=== PATIENT | male | born 1930 | race Caucasian/White ===

== ENCOUNTER 2016-12-12 06:19 | Day surgery (SDC) | payer OTHER, BC ==
--- NOTE | 2016-11-01 11:33 | HP ---
DATE OF SURGERY: 11/21/16. REASON FOR ADMISSION: Large left inguinal hernia. BRIEF HISTORY: This is an 85-year-old gentleman with several year history of having a large left inguinal hernia. He has had this hernia causing him discomfort now and he wishes to have this repaired. Patient states the hernia now is causing him pain when he sits down or does any type of lifting or bending type activities. The hernia has gotten larger over the past several years as well. He denies having nausea or vomiting, no change in bowel habits. PAST MEDICAL HISTORY: Significant for atrial fibrillation, hypertension, hypercholesterolemia. He has arthritic changes, eye disease, and skin problems. PAST SURGICAL HISTORY: Melanoma, hip replacement. Patient has had a prostate procedure in 2005 (I assume it is TURP but will plan to follow up and make sure it was not a prostatectomy). He had knee surgery. ALLERGIES: None. SOCIAL HISTORY: Patient does not smoke. He drinks socially. MEDICATION: Allopurinol 300mg and Diovan 160mg. PHYSICAL EXAMINATION: Lungs: Clear. Heart: Regular rhythm. Abdomen: Soft. Nontender. Nondistended. He has a large left inguinal hernia which is reducible in the supine position. He has no obvious findings in the right groin, but there is some laxity noted. Testicles within normal limits. IMPRESSION/PLAN: Reducible large left inguinal hernia: This is an 85-year-old gentleman symptomatic from a reducible large left inguinal hernia. I would recommend proceeding with a laparoscopic left inguinal hernia repair with mesh. At the time of laparoscopy the right side will be examined, if a small hernia is noted, it will be repaired in the same setting. If no hernia is seen a piece of mesh will be left in direct normal space for reinforcement. The indications, alternatives, complications of procedure discussed. Questions answered. Will plan to obtain written consent on the day of surgery. Frida RENEE [id number] cc: Jose Johns M.D. 11/06/16 ADDENDUM - Pt notified our office on 09/12/16 that the prostate procedure that he had in the past was a radio seed implant in the prostate done on 08/01/2005. [facility]
[2016-12-10 12:59] VITALS: BMI 23.0
[2016-12-12] MEDS ORDERED: ceFAZolin SODIUM 1 GM VIAL ONE (07:21)
[2016-12-12] MEDS ORDERED: TAMSULOSIN HCL 0.4 MG CAP.ER.24H (FP) ONE ×2 (07:21→12:22)
[2016-12-12] MEDS ORDERED: BUPIVACAINE HCL/PF 0.5% (5MG/ML) 10 ML VIAL ONE (07:44)
[2016-12-12] MEDS ORDERED: DEXAMETHASONE SOD PHOSPHATE/PF 10 MG/ML SDV ONE (07:44)
[2016-12-12] MEDS ORDERED: MIDAZOLAM HCL 2 MG/2 ML SINGLE DOSE VIAL ONE (07:46)
[2016-12-12] MEDS ORDERED: PROPOFOL 20 ML ONE ×4 (07:46→08:46)
[2016-12-12] MEDS ORDERED: ROCURONIUM BROMIDE 50 MG/5 ML VIAL ONE ×2 (08:08→08:45)
[2016-12-12] MEDS ORDERED: ceFAZolin SODIUM 1 GM VIAL IVPB ONE (08:15)
[2016-12-12] MEDS ORDERED: PHENYLEPHRINE HCL 10 MG/1 ML SINGLE DOSE VIAL ONE (08:25)
[2016-12-12] MEDS ORDERED: ePHEDrine SULFATE 50 MG/1 ML AMPULE ONE (08:26)
[2016-12-12] MEDS ORDERED: SUCCINYLCHOLINE CHLORIDE 200 MG/10 ML VIAL ONE (08:27)
[2016-12-12] MEDS ORDERED: DEXAMETHASONE SOD PHOSPHATE 4 MG/1 ML VIAL ONE (08:39)
[2016-12-12] MEDS ORDERED: ONDANSETRON 4 MG/2 ML VIAL IVPUSH PRN (09:22)
[2016-12-12] MEDS ORDERED: oxyCODONE HCL 5 MG TABLET PO PRN (09:22)
[2016-12-12] MEDS ORDERED: LACTATED RINGERS SOLUTION 1,000 ML IV SCH (09:30)
[2016-12-12 10:00] VITALS: TEMP 97.7
[2016-12-12 19:26] VITALS: BP 141/79; PULSE 68
--- NOTE | 2016-12-13 09:11 | OP ---
DATE OF OPERATION: 12/12/2016 PREOPERATIVE DIAGNOSIS: Bilateral hernias. POSTOPERATIVE DIAGNOSIS: Left pantaloon inguinal hernia, right indirect inguinal hernia attenuation at direct inguinal floor on the right side. PROCEDURE: Bilateral inguinal herniorrhaphy with mesh. SURGEON: Francesco Thorne MD CLEANING PROFESSIONAL: Christopher Nieto MD ANESTHESIA: Mariangel Hollis MD (general). ESTIMATED BLOOD LOSS: Minimal. SPECIMEN: None. INDICATION FOR PROCEDURE: This is an 86-year-old gentleman with a large mass and lump in his left groin. Findings consistent with a large left inguinal hernia. The patient is symptomatic and is here today for an operative repair. DESCRIPTION OF PROCEDURE: Patient identified and appropriately positioned on the operating room table. After placement of general anesthesia, the abdomen was prepped and draped in the usual sterile fashion with ChloraPrep. An infraumbilical incision was made and deepened through the subcutaneous tissue. The fascia of the rectus muscle on the left identified, divided sharply. The muscles split under direct vision. Dissector balloon followed by a structural balloon was placed. Also, under direct vision, a suprapubic 11-mm port placed. The following structures on the left side identified: Pubic tubercle, Rojelio ligament, inferior epigastric vessels, spermatic cord, and lateral abdominal wall. During this dissection, the patient is noted to have a direct inguinal hernia containing fat. This was reduced back in the preperitoneal space. He had an indirect inguinal hernia with a large sac. The sac reduced back in the preperitoneal space with blunt and sharp dissection. A 4.5 x 6 piece of Versatex mesh was keyhole placed through the suprapubic port site. The mesh wrapped around the cord structures laterally to reconstruct the internal ring. Laterally, the mesh anchored to the anterior abdominal wall and lateral abdominal wall. Medially, the mesh anchored to the anterior abdominal wall, pubic tubercle and Rojelio ligament. Upon completion of the left side, similar structures on the right side were identified. On the right side, he had attenuation of direct inguinal floor. He had an indirect inguinal hernia. Sac reduced back into the preperitoneal space with blunt dissection. Another 4.5 x 6 piece of Versatex was keyhole placed through the suprapubic port site. The mesh wrapped around the cord structures laterally to reconstruct the internal ring. Laterally, the mesh anchored to the anterior abdominal wall and lateral abdominal wall. Medially, the mesh well overlapped in the midline, anchored to the anterior abdominal wall, pubic tubercle, and Rojelio ligament. The preperitoneal space desufflated under direct vision. The operative field examined, noted to be hemostatic. The fascia at both port sites reapproximated with 0 Vicryl suture. All skin closed with 4-0 subcuticular Biosyn, followed by Dermabond. At the conclusion of this case, sponge and needle counts were correct. ATTESTATION: A brief operative note handwritten on the preprinted form. [facility] queried prior to giving given any narcotics. Frida RENEE [id number] cc: MD Cary Granado MD
== END 2016-12-12 19:39 | disposition home or self-care (01) ==
LOC: JASU-SURG 06:19
PROVIDERS: ATTEND Surgery
PROC: 0YUA0JZ Supplement Bilateral Inguinal Region with Synthetic Substitute, Open Approach (ICD-10-PCS; principal; 2016-12-12 08:00)
DX: K40.90 Unilateral inguinal hernia, without obstruction or gangrene, not specified as recurrent (principal)
CPT/HCPCS: 94760